=== PATIENT | female | born 1990 | race Caucasian/White ===

== ENCOUNTER → 2018-09-21 | Outpatient (CLI) | payer OTHER ==
--- NOTE | 2018-09-21 13:58 | RAD ---
EXAM: Right ankle, 3 views. HISTORY: Pain. COMPARISON: None. FINDINGS: 3 views of the right ankle are obtained. There is no fracture, dislocation or subluxation. The ankle mortise is intact. There is no osteochondral lesion. IMPRESSION: No acute osseous finding. Electronically signed by: Lucrecia Smith MD (09/21/2018 1:53 PM) [id number]
== END | disposition home or self-care (01) ==
LOC: PMG 12:59
PROVIDERS: ATTEND Registered Nurse
DX: M25.579 Pain in unspecified ankle and joints of unspecified foot (principal)
CPT/HCPCS: 73610

== ENCOUNTER → 2018-09-26 | Outpatient (CLI) | payer OTHER ==
[2018-09-26 08:43] LABS: BASO % 1 % (0-3); EOS # 0.1 x10^3/uL (0.0-0.7); EOS % 2 % (0-3); HEMATOCRIT 40.4 % (36.0-47.0); HEMOGLOBIN 13.6 g/dL (12.0-15.5); LYMPH # 2.2 x10^3/uL (1.0-4.8); LYMPH % 41 % (24-48); MEAN CORPUSCULAR HEMOGLOBIN 28 pg (25-35); MEAN CORPUSCULAR HGB CONC 34 g/dL (31-37); MEAN CORPUSCULAR VOLUME 83 fL (79-100); MONO # 0.5 x10^3/uL (0.0-1.1); MONO % 9 % (0-9); NEUT # 2.5 x10^3uL (1.8-7.7); NEUT % 47 % (31-73); PLATELET COUNT 191 x10^3/uL (140-400); RED BLOOD COUNT 4.86 x10^6/uL (3.50-5.40); WHITE BLOOD COUNT 5.3 x10^3/uL (4.0-11.0)
[2018-09-26 09:01] LABS: ALBUMIN 3.7 g/dL (3.4-5.0); CREATININE 0.8 mg/dL (0.6-1.0); GFR 86.7; POTASSIUM 3.6 mmol/L (3.5-5.1); TOTAL BILIRUBIN 0.3 mg/dL (0.2-1.0); TOTAL PROTEIN 7.4 g/dL (6.4-8.2)
--- NOTE | 2018-09-26 09:37 | RAD ---
Examination: Ultrasound pelvis complete HISTORY: History of pain on palpation COMPARISON: None available TECHNIQUE: Transabdominal, transvaginal ultrasound examination of the pelvis. FINDINGS: The uterus measures 8.8 x 6.2 x 3.4 cm. The right ovary measures 3.5 x 2.3 x 1.9 cm. The left ovary measures 3.1 x 2.4 x 1.9 cm. The endometrium measures 7 mm in thickness. Linear echogenicity identified in the endometrium likely intrauterine contraceptive device. Blood flow identified in the right and left ovaries. Small amount of fluid identified in the cul-de-sac and anterior to the uterus. IMPRESSION: 1. Intrauterine contraceptive device in place. 2. Small amount of free fluid identified in the cul-de-sac and anterior to the uterus, nonspecific. Electronically signed by: Jozef Jain MD (09/26/2018 9:33 AM) [id number]
[2018-09-26 13:58] LABS: THYROID STIM HORMONE (TSH) 0.642 uIU/mL (0.358-3.740)
== END | disposition home or self-care (01) ==
LOC: US 07:43
PROVIDERS: ATTEND Registered Nurse
DX: R10.2 Pelvic and perineal pain (principal); Z97.5 Presence of (intrauterine) contraceptive device
CPT/HCPCS: 36415; 76830; 76856; 80053; 80061; 84436; 84443; 85025